=== PATIENT | female | born 1995 | race Caucasian/White ===

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

== ENCOUNTER 2017-12-05 10:15 | Emergency (ER) | payer OTHER, MEDICAID ==
[2017-12-05 10:27] VITALS: BP 136/87
--- NOTE | 2017-12-05 10:27 | UC ---
Complaint Female HPI - HPI Summary HPI Summary: 22 yo female presents with urinary burning, frequency, and bladder pressure for the last 3 days. She denies fever, chills, abdominal pain, n/v, flank pain, vaginal discharge. - History Of Current Complaint Chief Complaint: UCGU Stated Complaint: UTI Time Seen by Provider: 12/05/17 10:27 Hx Obtained From: Patient Hx Last Menstrual Period: 10/09/17 Onset/Duration: Gradual Onset Timing: Constant Severity Initially: Mild Severity Currently: Moderate Pain Intensity: 5 Pain Scale Used: 0-10 Numeric - Allergies/Home Medications Allergies/Adverse Reactions: Allergies Allergy/AdvReac Type Severity Reaction Status Date / Time No Known Allergies Allergy Verified 12/05/17 10:27 Home Medications: Home Medications Levothyroxine Sodium [Levoxyl] 137 mcg PO DAILY 12/05/17 [History Confirmed ] PMH/Surg Hx/FS Hx/Imm Hx - Additional Past Medical History Additional PMH: Thyroid CA - Surgical History Surgical History: Yes Surgery Procedure, Year, and Place: Thyroidectomy 07/06/17 - Family History Known Family History: Positive: None Family History: no reported cardiovascular issues in family lineage - Social History Occupation: Student Lives: With Family Alcohol Use: None Substance Use Type: None Smoking Status (MU): Never Smoked Tobacco Review of Systems Constitutional: Negative Skin: Negative Respiratory: Negative Cardiovascular: Negative Gastrointestinal: Negative Genitourinary: Dysuria, Frequency, Urgency Neurovascular: Negative Neurological: Negative Psychological: Negative All Other Systems Reviewed And Are Negative: Yes Physical Exam - Summary Physical Exam Summary: GENERAL: NAD. WDWN. No pain distress. SKIN: No rashes, sores, lesions, or open wounds. NECK: Supple. Nontender. No lymphadenopathy. CHEST: CTAB. No r/r/w. No accessory muscle use. Breathing comfortably and in no distress. CV: RRR. Without m/r/g. Pulses intact. Cap refill <2seconds ABDOMEN: Soft. NTTP. No distention or guarding. No CVA tenderness. Bowel sounds present NEURO: Alert. PSYCH: Age appropriate behavior. Triage Information Reviewed: Yes Vital Signs: Initial Vital Signs Temp 98.5 F 12/05/17 10:20 Pulse 90 12/05/17 10:20 Resp 18 12/05/17 10:20 BP 136/87 12/05/17 10:20 Pulse Ox 100 12/05/17 10:20 Laboratory Tests 12/05/17 10:33 POC Urine Color Dark yellow POC Urine Clarity Slightly cloudy POC Urine pH 6.0 POC Ur Specif [place] 1.025 POC Urine Protein Negative POC Ur Glucose (UA) Negative POC Urine Ketones Negative POC Urine Blood Negative POC Urine Nitrite Negative POC Urine Bilirubin Negative POC Urine Urobilinogen 0.2 POC U Leukocyte Esteras 2+ A Vital Signs Reviewed: Yes Complaint Female Dx - Course Course Of Treatment: UA with signs of UTI. Will rx for Bactrim and Pyridium and send her urine for culture. - Differential Dx/Diagnosis Provider Diagnoses: UTI Discharge - Sign-Out/Discharge Documenting (check all that apply): Patient Departure All imaging exams completed and their final reports reviewed: No Studies - Discharge Plan Condition: Stable Disposition: HOME Prescriptions: Phenazopyridine 200 mg (NF) [Pyridium 200 MG tab *] 200 mg PO TID #6 tab Sulfamethox/Trimethoprim DS* [Bactrim DS 800/160 TAB*] 1 tab PO BID #10 tab Patient Education Materials: Urinary Tract Infection in Women (DC) Referrals: Patricia Raya MD [Primary Care Provider] - Additional Instructions: If you develop a fever, shortness of breath, chest pain, new or worsening symptoms - please call your PCP or go to the ED. - Billing Disposition and Condition Condition: STABLE Disposition: Home
== END 2017-12-05 10:55 | disposition home or self-care (01) ==
LOC: UCEAST 10:15
DX: N39.0 Urinary tract infection, site not specified (principal)
CPT/HCPCS: 81003; 87086; 99212; G0463

== ENCOUNTER 2018-07-05 20:17 | Emergency (ER) | payer OTHER ==
[2018-07-05 20:48] VITALS: BP 122/60
--- NOTE | 2018-07-05 21:37 | UC ---
Dental HPI - HPI Summary HPI Summary: 23-year-old female presents with 2 day history of right lower dental pain and mild facial swelling. States she had a similar episode in the recent past on the left side and was seen by her dentist who told her that it was from a crooked wisdom tooth that was erupting. Reports she was placed on a course of antibiotics and instructed to use ibuprofen and had improvement in her symptoms. She does not have a dentist appointment scheduled at present. Denies fever, chills, trismus, dysphagia, drainage, or difficulty breathing. - History of Current Complaint Chief Complaint: UCGeneralIllness Stated Complaint: SWOLLEN JAW Time Seen by Provider: 07/05/18 21:06 Hx Obtained From: Patient Hx Last Menstrual Period: 06/29/18 Pain Intensity: 0 - Allergies/Home Medications Allergies/Adverse Reactions: Allergies Allergy/AdvReac Type Severity Reaction Status Date / Time No Known Allergies Allergy Verified 07/05/18 20:48 PMH/Surg Hx/FS Hx/Imm Hx Endocrine History: Hypothyroidism - Surgical History Surgical History: Yes Surgery Procedure, Year, and Place: Thyroidectomy 07/06/17 - Family History Known Family History: Positive: Non-Contributory Family History: no reported cardiovascular issues in family lineage - Social History Occupation: Student Lives: With Family Alcohol Use: None Substance Use Type: None Smoking Status (MU): Never Smoked Tobacco Review of Systems All Other Systems Reviewed And Are Negative: Yes Constitutional: Negative: Fever, Chills Eyes: Negative: Drainage, Eye Redness ENT: Positive: Dental Pain. Negative: Sore Throat, Ear Ache, Nasal Discharge, Sinus Congestion, Sinus Pain/Tenderness Respiratory: Positive: Negative Cardiovascular: Positive: Negative Gastrointestinal: Positive: Negative Genitourinary: Positive: Negative Musculoskeletal: Positive: Negative Neurological: Positive: Negative Is Patient Immunocompromised?: No Physical Exam - Summary Physical Exam Summary: GENERAL APPEARANCE: Well developed, well nourished, alert and cooperative, and appears to be in no acute distress. HEAD: Atraumatic. Normocephalic. No facial swelling noted. EYES: Conjunctiva clear. No drainage. EARS: External auditory canals and tympanic membranes clear, hearing grossly intact. NOSE: No nasal discharge. THROAT: Pharynx normal. No tonsilar inflammation, swelling, exudate, or lesions. Uvula midline. Multiple repaired dental caries. No serious dental decay or injury noted. No gingival erythema, edema, induration, or fluctuance noted. NECK: Neck supple, non-tender without lymphadenopathy. CARDIAC: Normal S1 and S2. No S3, S4 or murmurs. Rhythm is regular. There is no peripheral edema, cyanosis or pallor. Extremities are warm and well perfused. Capillary refill is less than 2 seconds. Peripheral pulses intact. LUNGS: Clear to auscultation without rales, rhonchi, wheezing or diminished breath sounds. ABDOMEN: Positive bowel sounds. Soft, nondistended, nontender. No guarding or rebound. No masses or hepatosplenomegally. MUSKULOSKELETAL: ROM intact to all extremities. No joint erythema or tenderness. Normal muscular development. Normal gait. SKIN: Skin normal color, texture and turgor with no lesions or eruptions. Triage Information Reviewed: Yes Vital Signs: Initial Vital Signs Temp 99 F 07/05/18 20:43 Pulse 81 07/05/18 20:43 Resp 16 07/05/18 20:43 BP 122/60 07/05/18 20:43 Pulse Ox 100 07/05/18 20:43 Vital Signs Reviewed: Yes Dental Complaint Course/Dx - Course Course Of Treatment: 23-year-old female presents with 2 day history of right lower dental pain and mild facial swelling. States she had a similar episode in the recent past on the left side and was seen by her dentist who told her that it was from a crooked wisdom tooth that was erupting. Reports she was placed on a course of antibiotics and instructed to use ibuprofen and had improvement in her symptoms. She does not have a dentist appointment scheduled at present. Denies fever, chills, trismus, dysphagia, drainage, or difficulty breathing. Afebrile. Vital signs stable. Patient's exam was overall unremarkable with no evidence of a dental abscess however I will place her on a course of amoxicillin 500 mg 3 times a day 10 days to treat for a possible dental infection as well as recommend [id number] analgesics as needed for pain. She was given the first dose of antibiotic in the clinic as well as naproxen 500 mg by mouth for pain. She is to schedule an appointment with her dentist at the next available. Anticipatory guidance and warning symptoms are reviewed with the patient. Verbalizes understanding and agrees with plan of care. - Differential Dx/Diagnosis Differential Diagnosis/Dx: Dental Abscess, Dental Caries, Gingivitis, Odontogenic Pain, Peridontic Disease Provider Diagnosis: Pain, dental Discharge - Sign-Out/Discharge Documenting (check all that apply): Patient Departure All imaging exams completed and their final reports reviewed: No Studies - Discharge Plan Condition: Stable Disposition: HOME Prescriptions: Amoxicillin PO (*) [Amoxicillin 500 MG CAP*] 500 mg PO TID #30 cap Patient Education Materials: Toothache (ED) Referrals: Patricia Raya MD [Primary Care Provider] - Additional Instructions: Start amoxicillin 500 mg three times a day for 10 days. Be sure to take then entire prescription even if feeling better. You were given the first dose in the clinic. Take acetaminophen (Tylenol) or ibuprofen (Advil, Motrin) according to directions as needed for pain. Be sure to rinse your mouth out with a warm salt water solution after every time you eat to remove any debris. Make an appointment with your dentist at next available appointment. Seek immediate medical attention in the emergency room if you develop fever greater than 100.5 F, you are unable to open of close your mouth, are unable to swallow, have difficulty breathing, or any worsening of symptoms. - Billing Disposition and Condition Condition: STABLE Disposition: Home
[2018-07-05] MEDS ORDERED: Amoxicillin PO (*) 500 MG CAP PO ONE (21:46)
[2018-07-05] MEDS ORDERED: Naproxen TAB* 250 MG PO ONE (21:46)
== END 2018-07-05 21:57 | disposition home or self-care (01) ==
LOC: UCEAST 20:17
DX: K08.89 Other specified disorders of teeth and supporting structures (principal)
CPT/HCPCS: 99212; A9270-GY; G0463